=== PATIENT | male | born 2000 | race Caucasian/White ===

== ENCOUNTER 2022-01-31 12:58 | Emergency (ER) | payer OTHER ==
[~2022-01-31] VITALS: Ht 190.5 cm; Wt 86.0 kg
--- NOTE | 2022-01-31 13:30 | ED Upper Extremity ---
General Chief Complaint: Upper Extremity Stated Complaint: L ARM SWELLING Nursing Triage Note: PT AMB TO FT WITH C/O L ARM SWELLING AND PAIN. PT STATES HE WAS [place] OVER THE WEEKEND AND THINKS HE MAY HAVE INJURED IT BUT DOESNT RECALL AN EXACT TIME Source: patient Exam Limitations: no limitations History of Present Illness Date Seen by Provider: Jan 31, 2022 Time Seen by Provider: 13:29 Initial Comments Patient is a 21-year-old male presents ED with left arm swelling. This occurred today when he woke up. Noted swelling around the left elbow. Patient is curre ntly in the . Did PT test this weekend. No specific injury. Reports pain with movement and overhead movement. Denies any warmth, redness. Was doing planks and mountain climber's which may be associated to the swelling to the elbow as his elbow was in contact with the ground. Has been taking ibuprofen to help with swelling. No history of DVT. Denies fever, chills, di stal numbness and tingling, chest pain, neck pain. Allergies and Home Medications Allergies Coded Allergies: No Known Drug Allergies (Unverified , 01/31/22) Patient Home Medication List Home Medication List Reviewed: Yes Clindamycin HCl (Clindamycin HCl) 300 Mg Capsule, 300 MG PO QID Prescribed by: LAWANDA MALDONADO on 01/31/22 1613 Discontinued Medications Cephalexin (Cephalexin) 500 Mg Tablet, 500 MG PO QID Prescribed by: LAWANDA MALDONADO on 01/31/22 1443 Review of Systems Constitutional: No diaphoresis EENTM: No ear pain, No blurred vision, No vision loss Respiratory: No cough, No dyspnea on exertion, No short of breath Cardiovascular: No chest pain Gastrointestinal: No abdominal pain, No diarrhea, No nausea, No vomiting Genitourinary: No decreased output, No discharge Musculoskeletal: No back pain; joint pain, muscle pain, muscle stiffness Skin: change in color; No change in hair/nails All Other Systems Reviewed Negative Unless Noted: Yes Past Bpihrcp-Dorlxy-Nveloq Hx Patient Social History Tobacco Use?: No Substance use?: No Alcohol Use?: Yes Alcohol type: Beer Alcohol Frequency: Rarely Immunizations Up To Date Influenza Vaccine Up-to-Date: No; Not Current Physical Exam Vital Signs Vital Signs - First Documented 01/31/22 13:05 Temp 36.6 Pulse 61 Resp 16 B/P (MAP) 155/80 (105) Pulse Ox 98 O2 Delivery Room Air Capillary Refill : Height, Weight, BMI Height: '" Weight: lbs. oz. 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, no motor/sensory deficits, alert, normal mood/affect, oriented x 3 Skin: warm/dry Progress/Results/Core Measures Results/Orders Lab Results Laboratory Tests Test 01/31/22 13:30 Range/Units White Blood Count 8.3 4.3-11.0 10^3/uL Red Blood Count 5.10 4.30-5.52 10^6/uL Hemoglobin 15.4 13.3-17.7 g/dL Hematocrit 47 40-54 % Mean Corpuscular Volume 93 80-99 fL Mean Corpuscular Hemoglobin 30 25-34 pg Mean Corpuscular Hemoglobin Concent 33 32-36 g/dL Red Cell Distribution Width 13.0 10.0-14.5 % Platelet Count 208 130-400 10^3/uL Mean Platelet Volume 10.3 9.0-12.2 fL Immature Granulocyte % (Auto) 0 % Neutrophils (%) (Auto) 72 42-75 % Lymphocytes (%) (Auto) 19 12-44 % Monocytes (%) (Auto) 7 0-12 % Eosinophils (%) (Auto) 1 0-10 % Basophils (%) (Auto) 1 0-10 % Neutrophils # (Auto) 6.0 1.8-7.8 10^3/uL Lymphocytes # (Auto) 1.5 1.0-4.0 10^3/uL Monocytes # (Auto) 0.6 0.0-1.0 10^3/uL Eosinophils # (Auto) 0.1 0.0-0.3 10^3/uL Basophils # (Auto) 0.0 0.0-0.1 10^3/uL Immature Granulocyte # (Auto) 0.0 0.0-0.1 10^3/uL Sodium Level 139 135-145 MMOL/L Potassium Level 4.0 3.6-5.0 MMOL/L Chloride Level 104 98-107 MMOL/L Carbon Dioxide Level 23 21-32 MMOL/L Anion Gap 12 5-14 MMOL/L Blood Urea Nitrogen 12 7-18 MG/DL Creatinine 0.76 0.60-1.30 MG/DL Estimat Glomerular Filtration Rate 131 BUN/Creatinine Ratio 16 Glucose Level 100 70-105 MG/DL Calcium Level 9.8 8.5-10.1 MG/DL Corrected Calcium 8.5-10.1 MG/DL Total Bilirubin 0.6 0.1-1.0 MG/DL Aspartate Amino Transf (AST/SGOT) 354 H 5-34 U/L Alanine Aminotransferase (ALT/SGPT) 147 H 0-55 U/L Alkaline Phosphatase 51 40-136 U/L C-Reactive Protein High Sensitivity 0.33 0.00-0.50 MG/DL Total Protein 7.5 6.4-8.2 GM/DL Albumin 4.6 H 3.2-4.5 GM/DL My Orders Orders - MARI MCQUEEN Cbc With Automated Diff (01/31/22 13:20) Comprehensive Metabolic Panel (01/31/22 13:20) Hs C Reactive Protein (01/31/22 13:20) Elbow, Left, 3 Views (01/31/22 13:20) Us Venous Upper Ext Lt (01/31/22 13:20) Vital Signs/I&O 01/31/22 01/31/22 13:05 14:54 Temp 36.6 36.6 Pulse 61 60 Resp 16 16 B/P (MAP) 155/80 (105) 140/74 Pulse Ox 98 100 O2 Delivery Room Air Room Air Blood Pressure Mean: 105 Departure Communication (Admissions) Patient is a 21-year-old male who presents the ED with left upper arm swelling. Ultrasound was negative for DVT. No specific trauma. Patient is currently in the did PT over the weekend. Patient has some swelling notable to the left elbow this morning. Denies of any specific known injury while doing PT. Mild left lateral epicondyle tenderness with swelling and mild erythema. Does have appropriate range of motion. Pain with over the shoulder motion of his left arm. Neurovascular intact. No erythema. Mild olecranon tenderness without specific swelling to this area suggesting bursitis. Concerning for bursitis versus epicondylitis, cellulitis, muscle strain, elbow sprain. Patient lab work was otherwise unremarkable. Slight elevated liver enzymes. Recommend outpatient follow-up for. Recommend ice and continue anti-inflamm atories. Orthopedic follow-up in 7 to 10 days. If worsening symptoms return back to ED. This may potential get infected. Minimal erythema suggesting cellulitis. Patient be discharged with clindamycin. Follow-up your PCP in 2 to 3 days for evaluation. Impression Primary Impression: Elbow pain Disposition: 01 HOME, SELF-CARE Condition: Stable Departure-Patient Inst. Decision time for Depature: 14:42 Referrals: [facility] [place] NO,LOCAL PHYSICIAN (PCP) Primary Care Physician AL GARCIA MD Patient Instructions: Elbow Sprain (DC) MARI MCQUEEN Jan 31, 2022 13:30
[2022-01-31 13:38] LABS: BASOPHILS % (AUTO) 1 % (0-10); EOSINOPHILS # (AUTO) 0.1 10^3/uL (0.0-0.3); EOSINOPHILS % (AUTO) 1 % (0-10); HEMATOCRIT 47 % (40-54); HEMOGLOBIN 15.4 g/dL (13.3-17.7); LYMPHOCYTES # (AUTO) 1.5 10^3/uL (1.0-4.0); LYMPHOCYTES % (AUTO) 19 % (12-44); MEAN CORPUSCULAR HEMOGLOBIN 30 pg (25-34); MEAN CORPUSCULAR HGB CONC 33 g/dL (32-36); MEAN CORPUSCULAR VOLUME 93 fL (80-99); MEAN PLATELET VOLUME 10.3 fL (9.0-12.2); MONOCYTES # (AUTO) 0.6 10^3/uL (0.0-1.0); MONOCYTES % (AUTO) 7 % (0-12); NEUTROPHILS % (AUTO) 72 % (42-75); PLATELET COUNT 208 10^3/uL (130-400); WHITE BLOOD COUNT 8.3 10^3/uL (4.3-11.0)
[2022-01-31 14:02] LABS: ALBUMIN 4.6 GM/DL (3.2-4.5); CHLORIDE 104 MMOL/L (98-107); SODIUM 139 MMOL/L (135-145)
[2022-01-31 14:04] LABS: CALCIUM 9.8 MG/DL (8.5-10.1)
[2022-01-31 14:05] LABS: GLUCOSE 100 MG/DL (70-105); TOTAL PROTEIN 7.5 GM/DL (6.4-8.2)
[2022-01-31 14:06] LABS: CARBON DIOXIDE 23 MMOL/L (21-32)
[2022-01-31 14:07] LABS: BILIRUBIN,TOTAL 0.6 MG/DL (0.1-1.0)
[2022-01-31 14:08] LABS: ALKALINE PHOSPHATASE 51 U/L (40-136)
[2022-01-31 14:09] LABS: CREATININE SERUM 0.76 MG/DL (0.60-1.30); GFR ESTIMATED 131
[2022-01-31 14:10] LABS: BUN/CREATININE RATIO 16
--- NOTE | 2022-01-31 14:11 | Diagnostic Imaging Report ---
INDICATION: Elbow pain. EXAMINATION: Left elbow from 01/31/2022. FINDINGS: Three views of the elbow. There is no evidence for an acute fracture or dislocation. The joint spaces are well maintained. There is no significant soft tissue swelling. IMPRESSION: No acute process. Dictated by: Dictated on workstation # [id number]
[2022-01-31 14:12] LABS: ALANINE AMINOTRANSFERASE 147 U/L (0-55)
--- NOTE | 2022-01-31 14:35 | Diagnostic Imaging Report ---
PROCEDURE: US venous upper extremity left. TECHNIQUE: Multiple real-time grayscale images were obtained of left upper extremity in various projections. Additional spectral analysis and color Doppler duplex images were also obtained. INDICATION: Left upper extremity swelling. FINDINGS: Grayscale and color Doppler evaluation of left upper extremity deep veins reveal no intraluminal filling defect. There is normal venous flow. There is normal compressibility and response to augmentation. IMPRESSION: No ultrasound evidence of left upper extremity deep venous thrombosis. Dictated by: Dictated on workstation # [id number]
[2022-01-31] MEDS ORDERED: CEPH500T PO (14:43)
[2022-01-31 14:54] VITALS: BP 140/74
[2022-01-31] MEDS ORDERED: CLIN-144 PO (16:13)
== END 2022-01-31 14:55 | disposition home or self-care (01) ==
LOC: ER 13:00
DX: M25.522 Pain in left elbow (principal)
CPT/HCPCS: 36415; 73080; 80053; 85025; 86141

== ENCOUNTER 2022-01-31 15:36 | Emergency (ER) | payer OTHER ==
[~2022-01-31] VITALS: Ht 190 cm; Wt 86.0 kg
[~2022-01-31 15:36] MED LIST: CEPH500T PO
--- NOTE | 2022-01-31 16:10 | ED Abdominal Pain ---
General Chief Complaint: Abdominal/GI Problems Nursing Triage Note: PT AMB TO FT1 PT CO OF L UPPER ABD JIGGLING, DENIES PAIN, STATES IS GETTING MORE JIGGLY DAY GOES ON. DENIES N/V/D. PT WAS SEEN ABOUT AN HOUR AGO IN ED FOR ARM PAIN Source of Information: Patient Exam Limitations: No Limitations History of Present Illness Date Seen by Provider: Jan 31, 2022 Time Seen by Provider: 16:09 Initial Comments Patient is a 21-year-old male who presents ED with left-sided abdominal pain. Patient states it feels like his left side of his abdomen is "jiggling". Denies of any specific pain at this time. Woke up with symptoms. Patient was seen here earlier today complaining of left elbow swelling. He did not mention of this type of discomfort and jiggling. No dysuria, increased urine frequency vomiting, diarrhea. Patient lab work today was unremarkable. Afebrile. Unclear of the exact cause. No history of previous abdominal surgery. Allergies and Home Medications Allergies Coded Allergies: No Known Drug Allergies (Unverified , 01/31/22) Patient Home Medication List Home Medication List Reviewed: Yes Clindamycin HCl (Clindamycin HCl) 300 Mg Capsule, 300 MG PO QID Prescribed by: LAWANDA MALDONADO on 01/31/22 1613 Discontinued Medications Cephalexin (Cephalexin) 500 Mg Tablet, 500 MG PO QID Prescribed by: LAWANDA MALDONADO on 01/31/22 1443 Review of Systems Review of Systems Constitutional: No chills, No diaphoresis, No fever, No malaise, No weakness EENTM: No See HPI, No Ear Drainage, No Ear Pain, No Mouth Pain, No Throat Pain, No Throat Swelling Respiratory: Denies Cough, Denies Orthopnea Cardiovascular: Denies Chest Pain, Denies Edema, Denies Irregular Heart Rate Gastrointestinal: Abdominal Pain; Denies Constipated, Denies Diarrhea, Denies Difficulty Swallowing, Denies Nausea, Denies Vomiting Genitourinary: Denies Burning, Denies Discharge Musculoskeletal: No back pain, No joint pain, No joint swelling, No muscle pain, No muscle stiffness Skin: No change in color, No change in hair/nails Endocrine: Denies Excessive Sweating All Other Systems Reviewed Negative Unless Noted: Yes Past Nyanznx-Cjowqf-Jfzifs Hx Patient Social History Tobacco Use?: No Substance use?: No Alcohol Use?: Yes Alcohol type: Beer Alcohol Frequency: Once in a while Pt feels they are or have been: No Physical Exam Vital Signs Vital Signs - First Documented 01/31/22 15:45 Temp 36.7 Pulse 69 Resp 18 B/P (MAP) 155/79 (104) Pulse Ox 98 Capillary Refill : Less Than 3 Seconds Height/Weight/BMI Height: '" Weight: lbs. oz. kg; 23.00 BMI Method: General Appearance: WD/WN, no apparent distress HEENT: PERRL/EOMI, normal ENT inspection, TMs normal Neck: non-tender, full range of motion, supple, normal inspection Respiratory: chest non-tender, lungs clear, normal breath sounds, no respiratory distress, no accessory muscle use Cardiovascular: regular rate, rhythm, no edema, no gallop, no JVD Gastrointestinal: normal bowel sounds, non tender, soft, no organomegaly, no pulsatile mass Extremities: other (Swelling to left lateral elbow with very minimal erythema. Normal active range of motion left elbow with supination pronation flexion extension. 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 Was seen here earlier did not mention that his abdomen has been juggling. No previous abdominal surgery. Normal white blood count. Afebrile. No specific tenderness. No peritoneal signs. Recommend continue taking his clindamycin as prescribed for his left arm concerning for cellulitis as a potential diagnosis. Follow-up with your PCP for reevaluation 2 to 3 days. Return precaution were discussed such as increased redness, swelling of the lef t arm. Any worsening or developing severe abdominal pain to return back to ED. Impression Primary Impression: Abdominal wall pain Disposition: 01 HOME, SELF-CARE Condition: Stable Departure-Patient Inst. Decision time for Depature: 16:10 Referrals: [facility] [place] NO,LOCAL PHYSICIAN (PCP) Primary Care Physician Patient Instructions: Abdominal Pain, Adult ED Scripts Clindamycin HCl (Clindamycin HCl) 300 Mg Capsule 300 MG PO QID for 7 Days, #28 CAP Prov: MARI MCQUEEN 01/31/22 MARI MCQUEEN Jan 31, 2022 16:10
[2022-01-31] MEDS ORDERED: CLIN-144 PO (16:13)
[2022-01-31 16:21] VITALS: BP 155/79
== END 2022-01-31 16:21 | disposition home or self-care (01) ==
LOC: EDUNIT# 15:36 → ER 15:38
DX: R10.9 Unspecified abdominal pain (principal)
CPT/HCPCS: 99281